=== PATIENT | female | born 1990 | race Two or more races ===

== ENCOUNTER 2025-02-18 11:09 | Emergency (ER) | payer MEDICAID, SELFPAY ==
[2025-02-18 11:10] VITALS: BMI 24.8
[2025-02-18 11:25] VITALS: BP 118/79; PULSE 62; RESP 16; TEMP 36.8; O2SAT 98
--- NOTE | 2025-02-18 11:34 | XR_ITS ---
Examination: OB Transvaginal ultrasound of the pelvis, complete Technique: Transvaginal sonographic images pelvis performed using wang scale imaging Exam date and time: February 18, 2025, 1248 hours INDICATIONS: Status post miscarriage 3 weeks ago with bleeding and cramping today FINDINGS: Uterus 9.1 cm endometrial stripe 1.1 cm No retained products of conception Right ovary 3.6 cm arterial flow, 3.1 x 2.7 x 2.7 cm cyst with internal echoes Left ovary 2.6 cm arterial flow small follicles IMPRESSION: No intrauterine gestation, no retained products of conception Right ovarian hemorrhagic cyst 3.1 x 2.7 x 2.7 cm, recommend 3-month follow-up.
--- NOTE | 2025-02-18 11:34 | PD.EDRME ---
Rapid Medical Screening Exam E Arrival date/time: 02/18/25 11:09 34-year-old female with no known medical history presents to the emergency room with a chief complaint of vaginal bleeding, pelvic pain, and foul odor from the vagina x 3 weeks. Patient states she had at spontaneous 3 weeks ago. I have greeted and performed a focused initial assessment of this patient. A comprehensive ED assessment and evaluation of the patient, analysis of all test results, and completion of the medical decision making process will be conducted by additional ED providers. Chief Complaint: Vaginal Bleeding Time Seen by Provider: 02/18/25 11:26 Vital signs: Vital Signs Temperature 98.2 F 02/18/25 11:25 Pulse Rate 62 02/18/25 11:25 Respiratory Rate 16 02/18/25 11:25 Blood Pressure 118/79 02/18/25 11:25 Pulse Oximetry (%) 98 02/18/25 11:25 Oxygen Delivery Method Room Air 02/18/25 11:25 Vital signs reviewed by provider: Yes Exam: Bilateral pelvic pain with palpation Clear bilateral lung sounds Clinical Impression: Retained products of conception/UTI
[2025-02-18 11:50] LABS: Collection Type, Urine Clean Catch
[2025-02-18 12:31] LABS: Bacteria,Urine Rare; Bilirubin,Urine Negative (Negative); Blood,Urine 3+ (Negative); Clarity,Urine Turbid (Clear/Hazy); Color,Urine Lt-Yellow (Lt Yel-Yel); Glucose, Urine Negative (Negative); Ketones,Urine Negative (Negative); Leukocyte Esterase,Urine Positive (Negative); Nitrite,Urine Negative (Negative); PH,Urine 6.5 (5.0-7.0); Protein,Urine Negative (Neg - Trace); RBC,Urine 4 /hpf (0-3); Specific Gravity,Urine 1.014 (1.001-1.035); Squamous Epithelial Cell,Urine 12 /hpf (0-5); Urobilinogen,Urine Negative mg/dL (0.0-1.0); WBC,Urine 1 /hpf (0-5)
[2025-02-18 12:37] LABS: Basophils # (Auto) 0.0 Thou/mm3 (0.0-0.2); Basophils % (Auto) 1 % (0-2.5); Eosinophils # (Auto) 0.1 Thou/mm3 (0.0-0.5); Eosinophils % (Auto) 2 % (0-10); Hematocrit 38.0 % (36.0-46.0); Hemoglobin 13.0 g/dL (12.0-16.0); Immature Granulocytes Auto 0.02 Thou/mm3 (0.00-0.00); Lymphocytes # (Auto) 2.6 Thou/mm3 (1.0-4.8); Lymphocytes % (Auto) 45 % (10-50); Mean Corpuscular HGB Conc 34.2 g/dl (31.0-37.0); Mean Corpuscular Hemoglobin 30.3 pg (25.0-35.0); Mean Corpuscular Volume 89 fL (80-100); Monocytes # (Auto) 0.5 Thou/mm3 (0.0-0.8); Monocytes % (Auto) 8 % (0-12); Neutrophils # (Auto) 2.6 Thou/mm3 (1.8-7.7); Neutrophils % (Auto) 44 % (37-80); Nucleated Red Blood Cell # 0.00 Thou/mm3 (0.00-0.00); Nucleated Red Blood Cell % 0 /100 WBC (0); Platelet Count 273 Thou/mm3 (140-440); RDW Standard Deviation 40.8 fL (36.4-46.3); Red Blood Count 4.29 Miln/mm3 (4.00-5.20); White Blood Count 5.8 Thou/mm3 (3.6-11.0)
[2025-02-18 13:01] LABS: Alanine Aminotransferase 10 U/L (10-49); Albumin, Serum 4.6 gm/dL (3.5-5.0); Albumin/Globulin Ratio 1.8 (1.2-2.2); Alkaline Phosphatase 71 U/L (46-116); Anion Gap 9 (7-16); Aspartate Amino Transferase 17 U/L (0-34); BUN/Creatinine Ratio 9 Ratio (12-20); Beta HCG,Quantitative 1 mIU/mL (<5.0); Bilirubin,Total 0.3 mg/dL (0.3-1.2); Blood Urea Nitrogen 7 mg/dL (9-23); Calcium 9.0 mg/dL (8.3-10.6); Calcium (Corrected) 9.0 mg/dL (8.5-10.1); Carbon Dioxide 21.9 mMol/L (20.0-31.0); Chloride 109 mMol/L (98-107); Creatinine (Component) 0.8 mg/dL (0.6-1.3); Estimated Creatinine Clearance 86.4 mL/min (>60); Globulin 2.6 gm/dL (2.3-3.5); Glucose 92 mg/dL (74-106); Osmolality,Calculated 277 (275-295); Potassium 4.0 mMol/L (3.4-5.1); Sodium 140 mMol/L (136-145); Total Protein 7.2 gm/dL (5.7-8.2); eGFR > 60 See Note
--- NOTE | 2025-02-18 13:59 | EDNOTE_ITS ---
<Statement entered by Lily Simmons MD - 02/18/25 17:13> As co-signing physician, I was present and available for consult prn. I concur with the plan and care as documented by the midlevel provider. ED General RME/HPI General Chief complaint: Vaginal Bleeding Stated complaint: Vag bleed Time Seen by Provider: 02/18/25 11:26 Arrival date/time: 02/18/25 11:09 CC: Vaginal discharge with foul odor HPI patient is 3 weeks status post miscarriage, stating that she had intermittent bleeding, that has developed into a very pink discharge and then became foul odor. Patient states visually the discharge is unchanged to a regular discharge but the odor is what is bothering her. Patient denies vaginal itch fever chills nausea vomiting pain with urination or bloody urination. Patient is sexually active. Patient has no other complaints. RME / HPI RME / HPI narrative: 02/18/25 11:09 34-year-old female with no known medical history presents to the emergency room with a chief complaint of vaginal bleeding, pelvic pain, and foul odor from the vagina x 3 weeks. Patient states she had at spontaneous 3 weeks ago. I have greeted and performed a focused initial assessment of this patient. A comprehensive ED assessment and evaluation of the patient, analysis of all test results, and completion of the medical decision making process will be conducted by additional ED providers. Exam: Bilateral pelvic pain with palpation Clear bilateral lung sounds Impression: Retained products of conception/UTI Related Data Home Medications ?Medication ?Instructions ?Recorded ?Confirmed vits no.130-ferrous fum 1 tab PO QDAY 2 11/13/21 27 mg iron-folic acid 800 mcg tablet ( Vitamin) Previous Rx's ?Medication ?Instructions ?Recorded albuterol sulfate 90 mcg/actuation 2 inh inhalation Q6 H PRN shortness 11/06/22 breath activated powder of breath #1 ea inhaler,sensor (Proair Digihaler) metronidazole 500 mg tablet 500 mg PO BID 7 days #14 t abs 02/18/25 Allergies Allergy/AdvReac Type Severity Reaction Status Date / Time No Known Allergies Allergy Verified 02/18/25 11:11 Review of Systems Review of Systems Narrative Review of Systems: GEN: No fever, no chills, no weight loss EYES: No discharge, no visual changes, no pain HEENT: No ear pain, no congestion, no sore throat PULM: No shortness of breath, no cough, no congestion CV: No chest pain, no dyspnea on exertion, no palpitations GI: No nausea, no vomiting, no diarrhea, no pain, no constipation : No frequency, no urgency, no dysuria MUSC/SKEL: No joint pain, no back pain SKIN: No rash PSYCH: No hallucinations, no depression HEME/LYMPH: No easy bleeding or bruising tendencies NEURO: No weakness, no headache Past Medical History Past Medical History CARDIAC: Negative Congestive Heart Failure RESPIRATORY: Negative Chronic Obstructive Pulmonary Disease (COPD) GENITOURINARY: Negative Renal Disease ENDOCRINE: Negative Diabetes Mellitus Type 1 or Diabetes Mellitus Type 2 PSYCHO/SOCIAL: Positive Depression Social History SMOKING STATUS: Never smoker ED Exam Narrative Physical exam: [General: Not in any acute distress Head normocephalic HEENT: Within acceptable limits Neck is supple nontender Chest equal chest rise nontender to palpation Respiratory: Clear to auscultation no wheezes crackles or rubs CV: Rate rhythm is regular no murmurs rubs or clicks Abdomen is soft nontender no masses positive bowel sounds all 4 quadrants Back: No CVA tenderness no spinous process tenderness from cervical spine thoracic and lumbar spine Skin: Intact no petechiae rash induration ulceration or crepitus Extremities: Moving all extremity against resistance cap refill less than 2 seconds neurosensory intact Neuro: Awake alert oriented x3 Glascow coma 15 no focal deficits] Course Course Course Narrative: Patient I discussed her condition, the patient states she wants antibiotic treatment, patient has declined pelvic exam. Patient is advised if there is worsening of symptoms in spite of the antibiotics she will go to her [facility] or family practice for pelvic exam. Quality Measures none Orders Category Date Time Status US OB transvaginal Stat Exams 02/18/25 11:34 Completed ABO/RH Type Stat Lab 02/18/25 12:18 Completed Beta HCG,Quantitative Stat Lab 02/18/25 12:18 Completed CBC Stat Lab 02/18/25 12:18 Completed CMP [Comprehensive Metabolic Panel] Stat Lab 02/18/25 12:18 Completed UA [Urinalysis] Stat Lab 02/18/25 11:46 Completed cefTRIAXone [Rocephin] 1,000 mg Med 02/18/25 13:58 Ordered Lidocaine 1% Pf Vial 5ml [Xylocaine 1% 5 ml] 2.1 ml IM X1 Vital Signs Vital signs: Vital Signs Temperature 98.2 F 02/18/25 11:25 Pulse Rate 62 02/18/25 11:25 Respiratory Rate 16 02/18/25 11:25 Blood Pressure 118/79 02/18/25 11:25 Pulse Oximetry (%) 98 02/18/25 11:25 Oxygen Delivery Method Room Air 02/18/25 11:25 Discharge Plan Plan Patient Disposition: HOME (Self Care) Patient condition on transfer: Stable Prescriptions/Referrals Prescriptions/Med Rec: New metronidazole 500 mg tablet 500 mg PO BID 7 Days Qty: 14 0RF No Action Vitamin 27 mg iron- 800 mcg tablet 1 tab PO QDAY Patient Comments: TAKE 1 TABLET BY MOUTH ONCE DAILY Proair Digihaler 90 mcg/actuation aero powdr breath act w/sensor 2 inh inhalation Q6H PRN (Reason: shortness of breath) Qty: 1 0RF Referrals: Phyllis Domingo FNP-C [Primary Care Provider] - In 1 week Problem List Clinical Impression: Vaginal discharge Patient/Caregiver Discharge Instructions Other Activity Instructions:: Take the medications as prescribed. If there is persistence of the symptoms follow-up with your primary care doctor or [facility]. Education Materials: Vaginal Infection Print Language: [place] Island[place] Stand Alone Forms: op5 Award Info., Work/School Release, Patient Portal Info Letter PA/ASHU Supervising Physician PA/ASHU Supervising Physician: Xavier Linares ENP [facility] Clinical Information Provided by: patient Medical Records reviewed [facility] Meds/Rx considered, not ordered None Labs/Rad/Tests considered, not ordered None Chronic Illness/Social Conditions which may negatively complicate care or outcome(s)-explain: None or not applicable Explain: Reason SAB EKG EKG not done Labs Labs: interpreted by ri Lab(s) Interpretation(s): CBC shows no acute leukocytosis anemia thrombocytopenia CMP shows no significant electrolyte imbalances renal impairment transaminitis or T. bili elevation Urine is turbid 3+ blood leukocyte esterase positive nitrite negative squamous epithelial 12 Imaging Imaging Interpretation(s): Ultrasound transvaginal is negative vault is empty. Medication Administration(s) Medication Administration History Ceftriaxone Sodium 1,000 mg/ (Lidocaine HCl 2.1 ml) 0 mg IM X1 ONE Stop: 02/18/25 13:59
== END 2025-02-18 14:34 | disposition home or self-care (01) ==
PROVIDERS: Nurse Practitioner Family; Emergency Provider Emergency Medicine; PCP Nurse Practitioner Family
DX: N89.8 Other specified noninflammatory disorders of vagina (principal)
CPT/HCPCS: 36415; 76817; 80053; 81001; 84702; 85025; 86900; 86901; 96372; 99283; J0696; J3490